=== PATIENT | female | born 1975 | race African-American/Black ===

== ENCOUNTER 2018-10-13 03:40 | Emergency (ER) | payer MEDICAID ==
[~2018-10-13] VITALS: Ht 157.5 cm; Wt 85.0 kg
[2018-10-13 05:43] LABS: CLARITY URINE CLEAR (CLEAR); COLOR URINE YELLOW (YELLOW); KETONES URINE NEGATIVE (NEGATIVE); LEUKOCYTE ESTERASE URINE NEGATIVE (NEGATIVE); NITRITE URINE NEGATIVE (NEGATIVE); OCCULT BLOOD URINE TRACE (NEGATIVE); PROTEIN URINE NEGATIVE (NEGATIVE); SPECIFIC GRAVITY URINE 1.004 (1.005-1.030); UROBILINOGEN URINE 0.2 E.U./dL (0.2-1.0)
[2018-10-13 05:59] LABS: *AMPHETAMINES SCREEN URINE NEGATIVE (NEGATIVE); *BARBITURATES SCREEN URINE NEGATIVE (NEGATIVE); *BENZODIAZEPINES SCREEN URINE NEGATIVE (NEGATIVE); *COCAINE SCREEN URINE NEGATIVE (NEGATIVE)
[2018-10-13 06:00] LABS: CANNABINOID URINE SCREEN NEGATIVE (NEGATIVE); METHADONE URINE SCREEN NEGATIVE (NEGATIVE); OPIATES URINE SCREEN NEGATIVE (NEGATIVE); PHENCYCLIDINE URINE SCREEN NEGATIVE (NEGATIVE)
[2018-10-13 07:14] LABS: CHLORIDE 113 mEq/L (98-107)
[2018-10-13] MEDS ORDERED: ACETAMINOPHEN 325MG TABLET PO ONE (07:15)
[2018-10-13 07:40] VITALS: BP 128/87
== END 2018-10-13 07:53 | disposition home or self-care (01) ==
LOC: ER 03:40
DX: R55 Syncope and collapse (principal); F41.9 Anxiety disorder, unspecified; E11.9 Type 2 diabetes mellitus without complications; E78.00 Pure hypercholesterolemia, unspecified; I10 Essential (primary) hypertension
CPT/HCPCS: 36415; 80305; 81003; 93005; 99284